=== PATIENT | female | born 1985 | race Caucasian/White ===

== ENCOUNTER 2019-10-28 11:02 | Outpatient (CLI) | payer OTHER, SELFPAY ==
--- NOTE | ~2019-10-28 | XR_ITS ---
EXAMINATION: XR UGIAC w kub DATE: 10/28/2019 11:43 INDICATION: Upper abdominal pain TECHNIQUE: Thick barium contrast with gas effervescent crystals were administered orally. Fluoroscop ic images of the esophagus, stomach, and proximal duodenum were obtained in various projections. The reafter, overhead images of the abdomen were performed. 0.7 minutes of fluroscopy. DAP 14.6. 40 image s FINDINGS: The esophagus is normal in caliber, without mucosal lesions or strictures. There is normal esophagea l peristalsis. There is a small sliding hiatal hernia with gastroesophageal reflux. The gastric folds are normal. The proximal duodenum is also normal in appearance. IMPRESSION: 1. Small sliding hiatal hernia with gastroesophageal reflux. Reviewed, dictated and finalized at location A.
--- NOTE | ~2019-10-28 | US_ITS ---
US right upper quadrant INDICATION: Right upper quadrant abdominal pain PROCEDURE: Realtime right upper abdominal ultrasound. COMPARISON: No prior studies for comparison. FINDINGS: The pancreas is normal without focal mass or pancreatic ductal dilation. Liver echotexture is normal without focal mass or intrahepatic biliary dilatation. There is normal directional flow i n the portal vein. The gallbladder is normal without stones, gallbladder wall thickening or pericholecystic fluid. Comm on bile duct measures 3 mm. No sonographic Granados's sign. IMPRESSION: 1: Normal limited abdominal ultrasound. Reviewed, dictated and finalized at location A.
== END 2019-10-28 11:03 | disposition home or self-care (01) ==
PROVIDERS: PCP Physician Assistant; Visit Provider Physician Assistant
DX: K44.9 Diaphragmatic hernia without obstruction or gangrene (principal); K21.9 Gastro-esophageal reflux disease without esophagitis
CPT/HCPCS: 74246; 76705

== ENCOUNTER 2024-11-28 12:57 | Outpatient (CLI) | payer BC, SELFPAY ==
--- NOTE | ~2024-11-28 | MR_ITS ---
EXAMINATION: MR brain/brain stem wo/w con DATE: 11/28/2024 14:53 INDICATION: Other primary ovarian failure TECHNIQUE: Magnetic resonance imaging (MRI) of the brain and brainstem was performed without and with 13 mL Multihance intravenous contrast. Whole-brain sequences included sagittal T1-weighted FSE, axia l diffusion-weighted FS EPI, axial T2*-weighted GRE, axial T2-weighted FLAIR Propeller, and axial T2- weighted Propeller. Small [id number] sequences included sagittal and coronal T1-weighted FSE cente red at the pituitary. Postcontrast sequences included small [id number] coronal T1-weighted FSE in a time course and sagittal T1-weighted FSE and whole-brain axial T1-weighted FSE. Apparent diffusion coefficient (ADC) maps were created. COMPARISON: None. FINDINGS: There are no areas of restricted diffusion to suggest acute infarction. There is a 3 x 2 mm hypoenhan cing lesion in the central pituitary suspicious for pituitary microadenoma. No evident extension of t he pituitary gland above level of the sella. Pituitary stalk is normal and midline. No intracranial h emorrhage or other abnormal intracranial mass lesion. There are no intraparenchymal signal abnormalit ies seen on the other pulse sequences. The ventricles are symmetric and normal in size. There are no abnormal extra-axial fluid collections. Flow voids are seen in the cerebral arteries on the T2-weight ed sequences consistent with their expected patency. Visualized orbits and soft tissues are unremarka ble. IMPRESSION: 1. 3 x 2 mm hypoenhancing central pituitary lesion consistent with a microadenoma. Reviewed, dictated and finalized at location A. IMPRESSION: 1. 3 x 2 mm hypoenhancing central pituitary lesion consistent with a microadeno [id number]
--- OUTSIDE RECORDS SUMMARY | 2024-11-28 13:03 | XMS_ITS | Clinical Summary ---
Author Organization [facility] Address [address] [place] [address] Care Team Providers Care [employer] Teacher Name Role Phone AngelicaAdelaida Primary Care Pr ovider Allergies Active Allergy Reactions Criticality Noted Date Comments Hydrocodone Nausea & Vomiting Low Pt reports more of an intolerance Medications [id number] cb,[id number] -dha 27-1-50-250 mg combo pack Take by mouth. Acti ve enoxaparin (LOVENOX) 40 mg/0.4 mL syringe 3 Active omega-3 fatty acids-fish oil 300-1,000 mg capsule Take 2 capsules (2 g total) by mouth daily Active budesonide-form oteroL (SYMBICORT) 80-4.5 mcg/actuation inhaler Inhale 2 puffs 2 (two) times a day Rinse mouth with water after use. Do not swallow. 1 each 2 3 Active ProChamber spacer as directed 3 Active ferrous sulfate 325 mg (65 mg of elemental iron) tablet Take 1 tablet (325 mg total) by mouth every other day 15 tablet 3 4 Active Additional Information Patient not taking.Reported on 09/30/2023 magnesium oxide (MAG-OX) 500 mg (301.6 mg elemental) tablet Take 1 tablet (500 mg total) by mouth daily 30 tablet 3 4 Active Additional Information Patient not taking.Reported on 09/30/2023 gabapentin (NEURONTIN) 400 mg capsule Take 1 capsule (400 mg total) by mouth 3 (three) times a day 90 capsule 11 4 Active ibuprofen (ADVIL,MOTRIN) 600 mg tablet Take 1 tablet (600 mg total) by mouth every 6 (six) hours as needed for pain for up to 30 doses 30 tablet 4 Active Additional Information Patient not taking.Reported on 09/30/2023 senna-docusate (PERICOLACE) 8.6-50 mg Take 1 tablet by mouth daily Do not take if having diarrhea 30 tablet 4 Active Additional Information Patient not taking.Reported on 09/30/2023 acetaminophen 500 mg capsule Take 2 capsules (1,000 mg total) by mouth every 6 (six) hours as needed for pain 60 tablet 4 Active Additional Information Patient not taking.Reported on 09/30/2023 polyethylene glycol (MIRALAX) 17 gram/dose bulk powder Take 17 g by mouth daily as needed (constipation) 238 g 4 Active Additional Information Patient not taking.Reported on 09/30/2023 hydrocortisone 0.5 % ointment Apply topically 2 (two) times a day 30 g 4 Active Additional Information Patient not taking.Reported on 09/30/2023 triamcinolone (KENALOG) 0.1 % ointment Apply topically 2 (two) times a day 30 g 4 Active Additional Information Patient not taking.Reported on 09/30/2023 citalopram (CeleXA) 40 mg tablet Take 1 tablet (40 mg total) by mouth daily 30 tablet 2 4 Active levothyroxine (SYNTHROID) 125 mcg tablet Take 1 tablet (125 mcg total) by mouth every morning 30 tablet 3 4 Active Hospital, Clinic, or Other Facility Administered Medication Ordered Dose Route Frequency Start Date End Date Status levonorgestreL (MIRENA) 21 mcg/24 hr (8 yrs) 52 mg IUDIndications:Preg puma Contraception intrauterine Continuous (implanted device) 10/29/2023 9 Active Active Problems Problem Noted Date Diagnosed Date , delivered, current hospitalization 024 Overview (09/18/2023): # ID: Afebrile. No signs/symptoms of infection. # Heme: Hgb 11.7. EBL 300 mL. Hemodynamically stable. #gestational thrombocytopenia: Plt 120k on admission #Mild intermittent asthma: Symbicort BID, albuterol PRN # CV/Pulm: Gestational hypertension - Blood pressures well controlled on no meds. Asymptomatic, denies MCKEE/RUQ pain/vision changes. CBC/CMP WNL (plt as above), UPC 0.067. Consented for BP monitoring, confirmed receipt of welcome text. #History of preeclampsia both prior pregnancies #Hx anorexia nervosa: Continue celexa 40mg daily #Hypothyroidism: Continue levothyroxine 137.5mcg daily #RLS: Continue gabapentin 400mg TID # GI/: Tolerating PO. Voiding spontaneously. # Pain: Controlled with above regimen. # MOC: Desires IUD at visit. # MOF: . Urine drug screen not indicated. Patient informed of results: N/A. # Post DVT prophylaxis: Patient with history of PE - In 2002 while on RODRIGUEZ. On lovenox 40mg daily, continue 6 weeks PP, ordered for PPD1. # Disposition: Follow up task sent to [facility] scheduling pool. Desires discharge home today. Encounter for induction of labor 09/15/2023 Overview (09/16/2023): Meagan Bennett is a 38 y.o. female at 36w6d who is dated by L=1 and is being admitted for scheduled TOLAC secondary . Admit to L&D: Consents signed and placed in chart. Labs: CBC and T&S pending. Induction of labor with delvalle balloon, pitocin . FWB: Continuous monitoring. Reactive . ID: 3rd trimester HIV (>28 wga) negative on 07/16. GBS negative on 08/18 . RPR on admission: pending. History of genital HSV or HSV 1/2 seropositivity: No. Membrane Status: intact. Indications for UDS: none. Verbal consent obtained for UDS: Not indicated. MOF: Plans to breastfeed. Urine drug screen not indicated. Patient informed of results: N/A. MOC: Desires BTL if CS . Pain management: Desires epidural. Post DVT prophylaxis: The patient has the following MAJOR risk factors none and the following MINOR risk factors age >/= 35. SCDs will be ordered for VTE prophylaxis . complicated by: #gHTN: on no medications #Hx pre-eclampsia: in both prior pregnancies, Baseline PIH labs: CMP: WNL and UPC: <66.8 #mild polyhydramnios: PAUL 27.1 on 09/09. #Hx anorexia nervosa: Continue celexa 40mg daily #Hypothyroidism: Continue levothyroxine 137.5mcg daily #Hx PE: In 2002 while on RODRIGUEZ. On lovenox 40mg daily, continue 6 weeks PP #Hx CS: In G3 pregnacy for triplets #Mild intermittent asthma: Symbicort BID, albuterol PRN #gestational thrombocytopenia: Last platelet count 109 on 09/09. Was unable to get neuraxial in G1 #RLS: Continue gabapentin 400mg TID 33 weeks gestation of 08/20/2023 Amenorrhea 06/25/2023 Dyspnea 04/16/2023 Mild intermittent asthma without complication Overview (07/16/2023): History of childhood asthma Pt presented to the [facility] on 03/21 with SOB. Started on symbicort 2 puffs bid- improved 07/16/2023 reports feeling winded again but has not been using her Symbicort Recommend she restart regular use and start zyrtec daily Assessment & Plan (03/26/2023 1:36 PM OCC THERAPY ASST): Albuterol has been helping for 30 minutes. Following counseling plan for d-dimer today and will rock picker and start symbicort as soon as possible with a low threshold for PE-CT in the [facility]. Will f/u results today and plan to see patient in 1 week. Restless legs syndrome 03/10/2023 Overview (07/16/2023): Restarted on gabapentin 300mg once at bedtime on 03/10/2023- discussed options for increasing to 600mg Continue on mag supplements TSH: 2.34 CBC: 11.6/34.2/146K Ferritin: 17- started on PO iron every other day CMP: WNL Assessment & Plan (05/27/2023 11:09 AM OCC THERAPY ASST): Worsening symptoms. Recommend labs today. Discussed good hydration and options for increasing her gabapentin. Previous baby with growth restriction 10/2022 Overview (2023): - plan for serial Golden History of delivery 02/20/2023 Overview (09/10/2023): History - hx of CS in G3 for triplets - previously counseled Plan Currently plans for TOLAC If breech pt declines a version and opts for repeat C/S- vertex 09/10/2023 Assessment & Plan (09/10/2023 10:25 AM CDT): 09/10/2023 Reviewed risks of TOLAC again today including risk of uterine rupture of 1%, reviewed risks of uterine rupture including risk of maternal and . Discussed that we will monitor her uterine activity and baby during her iOL. Reviewed importance of presenting to the [facility] immediately with regular contractions or vaginal bleeding so we can monitor her uterine activity and baby. Discussed that we will not use cytotec and will monitor the pit closely. Discussed risks of C/S delivery including increased bleeding, damage to other organs, scar tissue and infection. Reviewed most women have less pain and easier recoveries with a vaginal delivery. Reviewed risks of vaginal laceration and that extensive lacerations are very difficult to predict. Reviewed most women still have pleasurable intercourse after a vaginal delivery. Discussed options for pelvic floor PT if desired after vaginal delivery. Assessment & Plan (09/04/2023 2:30 PM CDT): Reviewed risks of uterine rupture and recommend epidural during labor. WAC precautions reviewed. Pt aware of recommendations to present to the [facility] with regular/painful contractions. History of delivery 02/20/2023 Overview (03/26/2023): History - G2 - 35w delivery in s/o PreE and FGR - G3 - 29w delivery in s/o triplet Plan - defer CL screening and progesterone supplementation as first delivery iatrogenic for PreE and second in s/o triplets History of anorexia nervosa 02/17/2023 Overview (07/16/2023): Currently on celexa and feels dose is appropriate Discussed options for therapy/support groups Will follow mood closely this Assessment & Plan (07/16/2023 1:43 PM OCC THERAPY ASST): Emotional support provided today. Encouraged walks if possible. Will send to PT to help with pain so she is able to stay active this . MELLY (obstructive sleep apnea) 05/28/2022 Nocturnal hypoxemia 05/28/2022 MVP (mitral valve prolapse) 05/28/2022 Malaise and fatigue 05/28/2022 Hypersomnia 05/28/2022 Grinding of teeth 05/28/2022 Gestational HTN 05/28/2022 Acute sinusitis 05/27/2022 Candidiasis of vagina 05/10/2022 Cough 05/06/2022 Acute bronchitis 05/06/2022 Abnormality of hormone 03/19/2022 Sleep apnea 02/27/2022 Gastroesophageal reflux disease 02/27/2022 Upper respiratory infection 10/01/2021 Nondiabetic gastroparesis 09/18/2021 Hyperlipidemia 09/18/2021 Urinary tract infection 02/27/2016 Diarrhea 11/13/2015 History of pulmonary embolism 06/16/2015 Overview (09/04/2023): History - Pulmonary embolism in 2002 while on estrogen containing control - Hypercoagulable workup: FVL, prothrombin, antithrombin III, protein C, protein S all negative. APLS workup with negative anticardiolipin antibody, positive lupus anticoagulant, no beta 2 glycoprotein ordered. Repeat APLS testing 2019 negative. - Was on Lovenox prophylactic during in 2016 and therapeutic doses in 2019 (due to triplet and possible APLS, repeat testing negative) - currently on lovenox 40mg through primary OB - previously counseled Plan: - continue prophylactic lovenox - APLS labs drawn: 02/27/23- WNL Anaclitic depression 06/16/2015 Overview (03/26/2023): Previously counseled currently on citalopram 40mg Plan: plan to continue citalopram at this time given ongoing anxiety/mood issues and body dysmorphia Irritable bowel syndrome 06/16/2015 Vascular disorder of lower extremity 10/02/2013 Overview (08/22/2016): DVT/EMBLSM LOWER EXT NOS Resolved Problems Problem Noted Date Diagnosed Date Resolved Date Polyhydramnios in third trim pushpa, not applicable or unspecified fetus 09/04/2023 10/29/19 Overview (09/10/2023): 09/04/2023 PAUL 31.1cm, counseled in US S/p low risk NIPT S/p normal 1 hour gtt, BS 09/04/2023 wnl on CMP 09/10/2023 PAUL 27.1, will continue to monitor Assessment & Plan (09/10/2023 10:20 AM CDT): Reviewed the recommendation to only do amnio reductions with severe poly. Reviewed at this time we will continue to monitor. Assessment & Plan (09/04/2023 2:35 PM CDT): Polyhydramnios was noted today. We counseled her that the majority of cases are idiopathic; however, other causes include diabetes, aneuploidy, and congenital anomalies. Pt has had normal NIPT and normal anatomy. Her diabetes test was normal and her BS today was normal. The risks of polyhydramnios, including maternal discomfort, labor, rupture of membranes, cord accident, and hemorrhage, were all reviewed. Pt was offered amnioreduction but remains undecided. We have scheduled her for BPP/fluid check in 1 week. Gestational hypertension, third trimester 08/19/2023 10/29/2023 Overview (09/10/2023): Diagnosed while inpatient. Continue weekly appts with weekly labs and 2x/weekly testing- recommended but pt unable to schedule 2x/weekly Q3 week growth US Delivery at 37 weeks Labs 09/03- repeat ordered for today Thrombocytopenia affecting 07/28/2023 10/29/2023 Overview (09/10/2023): G1 platelets dropped into the 70s, she was unable to get an epidural Lab Results Component Value Date WBC 10.0 (H) 09/04/2023 HGB 12.5 09/04/2023 HCT 36.8 09/04/2023 MCV 90.4 09/04/2023 LABPLAT 108 (L) 09/04/2023 Plan: [] Continue weekly labs [] Anesthesia consult- scheduled but not performed, will reach back out to anesthesia SI (sacroiliac) pain 07/16/2023 024 Overview (07/16/2023): Now wearing a belly band which has been helpful Currently seeing a chiropractor Will refer to PT 07/16/2023 Nausea and vomiting during 2023 05/27/2023 Overview (03/26/2023): - tolerating intermittent PO - plan for B6/unisom, susana zofran, and prn reglan Plan: - sx check qvisit Hypothyroidism affecting pre gnancy in first trimester 02/17/2023 10/29/2023 Overview (09/10/2023): History - pt with history of Olivia's thyroiditis in 2005 - Last TSH 5.3 (per report, no records) - increased from 125mcg to 137.5mcg - home levothyroxine 137.5 mcg daily - previously counseled Plan [] TSH q trimester- ordered for today History of pre-eclampsia in prior , currently in first trimester 02/17/2023 Overview (09/04/2023): History - hx preE in both previous deliveries - previously counseled Plan: - Baseline PIH labs: CMP: WNL and UPC: <66.8 - Low dose ASA at 12 weeks - repeat APLS panel negative See gHTN problem Supervision of high-risk pre gnancy, first trimester 02/17/2023 10/29/2023 Overview (09/10/2023): [x] Full MFM Care; [x] Blue Team (full LUPILLO 2023) Referring Provider: Castillo Sung [phone] [] or Medicare Insurance [x] Dating Criteria: LMP 12/31/22 with TIMUR 10/07/23 [x] Labs: Rh [A+], Ab [Negative], Rubella [Immune], HIV [NonReactive], HepBSAg [Negative], RPR [NonReactive], Hep C [NR], Varicella [Immune], GC/CT [negative] [x] Genetic Screening: low risk Panorama [x] CBC/Hgb 12.7/37.5/188 [x] UCx: No growth [x] Pap: normal 2021 per report [x] LD ASA (if indicated) starting at 12 weeks: [] EPDS [ ]; PNBHS referral (if indicated) 2nd Tri Labs: [x] Anatomy ultrasound: complete [x] CBC: 11.5/34.9/122K 1hr gtt at 24-28wks: 104 HIV: NR RPR: NR [] Flu Shot (Jan-Apr): [x] Tdap (27-36wks): 07/16/2023 MM 3rd Tri Labs: [x] CBC/HIV/RPR: HIV neg, RPR NR [x] GBS: negative 08/18 [x] testing: recommended for 2x/weekly testing 2/2 gHTN, pt scheduled for 1x/weekly Counseling [x] MOD: scheduled IOL TOLAC on 09/14 at 2300 - pt letter sent [x] Place of delivery: [facility] [x] Last clinic visit SVE: 06/12/ballotable [x] IOL start agent: cook/pitocin [x] Epidural: desires [] Consents signed: upon admission [x] MOC: desires salpingectomy if she needs a C/S [x] Method of feeding: breast [x] Intermediate Manager: [x] PP Depression Discussed: Assessment & Plan (07/16/2023 1:44 PM OCC THERAPY ASST): Reviewed importance of continued close monitoring. Patient ok with appt in 2 weeks. [facility] precautions discussed. Reviewed that we do not recommend bed rest in and that I encourage regular movement. No evidence of SROM or PTL today. Epigastric pain 02/08/2022 10/29/2023 Overview (08/22/2023): Continues to have ongoing RUQ pain. LFTs normal. S/p r/o preE in the [facility] 08/04. If she has another mild range BP will plan for admit for obs [x] SFLT/PlGF ratio to rule out PreE - normal [x] RUQ US- normal Plan for close Bp monitoring/weekly appts [facility] precautions reviewed IUD check up 04/07/2019 07/31/2023 Encounter for insertion of Mirena IUD 04/07/2019 07/31/2023 care following delivery 02/24/2019 04/07/2019 Overview (02/27/2019): # ID: Afebrile. No signs/symptoms of infection. Rubella NI, MMR ordered. # Heme: EBL 600mL. No symptoms acute blood loss anemia. # CV/Pulm: #Pre-eclampsia with severe features - s/p 24h magnesium sulfate. Blood pressures well-controlled on no meds, mild-range around delivery, intermittent mild-ranges PP. CBC/CMP remarkable for low platelets (89 > 91), Cr 0.68 > 0.82 > 0.86, UPC 0.27. RUQ pain and MCKEE both improved, no residual symptoms. # HypoT: Continue Synthroid 112mcg. # H/o anorexia nervosa: Continue Celexa 10mg. # GI/: Tolerating PO. Voiding spontaneously. # Pain: Controlled with above regimen. # Post DVT prophylaxis: Patient has the following moderate risk factors: Preeclampsia, history of PE (provoked by OCPs in 2005). Her post prophylaxis plan is therapeutic Lovenox for 6 weeks due to history of PE in setting of multifetal gestation. # MOC: Declines - IVF # MOF: # Disposition: Continue routine care, anticipate discharge today. Benign gestational thrombocy topenia in third trimester 02/19/2019 04/07/2019 Less than expected interval growth- Twin B 02/12/2019 04/07/2019 Overview (02/12/2019): 01/15: EFW Twin B 654g (35%) 02/12: EFW Twin B 1,034g (11%) Discussed that currently all fetuses are AGA, however, there has been interval deceleration in the growth of fetus 2. Discussed options with patient and plan to initiate 2x/weekly BPPs at 28 weeks. Assessment & Plan (02/12/2019 2:24 PM CDT): BPPs today 12/24 x3 Leakage of fluid 02/12/2019 04/07/2019 Overview (02/12/2019): Patient reports a large gush of fluid twice in the last week for which she went to the [facility] and was r/o for rupture. She reports fluid did not smell like urine and is was different than her normal vaginal discharge. No evidence of rupture today. Negative Nitrazine, negative pooling, negative fern. Fluid normal x3. Strict [facility] precautions were reviewed. If she experiences a large gush of fluid she needs to present immediately to the [facility] for evaluation. Reviewed symptoms of infection. Twin 1- Marginal cord insertion 12/18/2018 04/07/2019 Overview (02/09/2019): Counseled regarding risks of IUGR Continue serial growth US Hypothyroidism affecting 10/23/2018 04/07/2019 Overview (02/19/2019): Olivia's thyroiditis diagnosed in 2005 Stable on Levothyroxine 125 mcg daily Previously counseled Plan: -Continue Levothyroxine 125mcg daily -Check TSH every trimester, 10/22 TSH 1.09, 02/12 TSH 0.99 resulting from in vitro fertilization 10/23/2018 04/07/2019 Overview (01/15/2019): [x] ECHOs - WNLx3 History of preeclampsia 10/23/201802/17 Overview (02/12/2019): Diagnosed with severe preeclampsia in her prior requiring delivery at 35 weeks (records in [place]) Had thrombocytopenia requiring a platelet transfusion ([place] of 55) That also complicated by IUGR. Reviewed risks of recurrent preeclampsia given history and especially in the setting of multifetal gestation Continue ASA CMP WNL History of anorexia nervosa 10/19/2018 03/10/2019 Overview (02/12/2019): History of anorexia/bulemia and severe depression Inpatient treatment x 4 months, remission since 2016 (end of last ) No history of hospitalizations or refeeding syndrome. 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 Will step on scale backward and not be told weight. Discussed we will discuss with her if there is a problem but it is best for her to not follow her weight. [x] re-engage with her counselor [x] [facility] referral placed [x] restart celexa 20 mg 12/18: Feeling significantly better after starting the Celexa and talking with her counselor. Continue to monitor symptoms Supervision of high-risk pre gnancy, unspecified trimester 10/19/2018 04/07/2019 Overview (02/19/2019): - Complete care with [facility] - Labs: Will send CBC an CMP from triage today. Needs GBS next visit - Immunizations: s/p flu and TDAP - Follow up: Weekly EOB. Started on twice weekly BPPs last visit. Sent to triage today due to Equivocal BPP for triplet 1 and 3 for NSTs [x] Full MFM Care Referring Provider: Chris [x] Dating Criteria: Embryo transfer [x] Labs: Rh [ A+ ], Ab [ neg ], Rubella [non-imm], HIV [ neg ], HepBSAg [ neg ], RPR [ NR ] [x] Genetic Screening: Normal NT x 3, negative CF carrier screening [x] GC/CT: negative [] UCx: obtain next visit [x] Pap: 2018 NILM [x] PNBHS referral (if indicated) - referral sent 11/20 2nd Tri Labs: [x] Anatomy ultrasound WNL x3, echos x3 WNL [x] CBC - 36.5/11.9/100K [x] 1hr gtt - 131 [x] Flu Shot (Jan-Dec) [x] Tdap (27-36wks) 3rd Tri Labs: [] CBC/HIV/RPR [] GBS [] GC/CT (if indicated) Counselling [x] MOD: Desired primary delivery [] MOC: [] Method of feeding: [] PP Depression Discussed Dichorionic Triamniotic Triplets 10/19/2018 04/07/2019 Overview (02/19/2019): IVF , 2 embryo transfer, dichorionic triamniotic triplet gestation (Triplet 1/Triplet 2 = monochorionic pair) Previously discussed risks Plan: -Nutrition consult, TWG goal of 50lbs, increased caloric intake to 9744-4196/day -LD ASA -TTTS screening every 2 weeks - Specialized anatomy US x 3 at 20 weeks - echos at 20-24 weeks- WNL -Serial growth US - testing starting at 28 weeks -Delivery by 34-35 weeks or sooner if indicated Antepartum hemorrhage 01/05/20162018 Olivia's thyroiditis 08/23/2015 10/0 12/2018 Chronic thyroiditis 10/02/2013 02/21/20 23 Overview (08/21/2016): CHR THYROIDITIS NEC/NOS Hypothyroidism 10/02/2013 02/20/2023 Overview (08/22/2016): Hypothyroid Pulmonary embolism 10/02/2013 9 Overview (01/15/2019): - Pulmonary embolism in 2002 while on estrogen containing control - Hypercoagulable workup: FVL, prothrombin, antithrombin III, protein C, protein S all negative. APLS workup with negative anticardiolipin antibody, positive lupus anticoagulant, no beta 2 glycoprotein ordered. No repeat testing done. - Was on Lovenox prophylactic during in 2016 - Restarted prophylactic dosing at 6 weeks gestation this - Previously counseled regarding risks - currently on therapeutic lovenox Previously discussed recommend scheduling her if possible with a plan for discontinuation of Lovenox 24 hours prior to allow for neuraxial anesthesia. We would plan to restart Lovenox 12 hours after her . Plan: - Lovenox to 1mg/kg BID - 01/08 anti Xa: 1, continue current dos; given normal BMI, will not trend anti- Xa as long as patient is compliant with medication -Continue anti-coagulation through 6 weeks Assessment & Plan (12/18/2018 11:54 AM CDT): Patient had only been taking qday Lovenox. Reviewed importance of BID dosing. Patient will initiate BID dosing today and have anti xa drawn on Friday. Immunizations Immunization Administration Dates Next Due Influenza, Quadrivalent, Denise l Culture-based MDCK, Antibiotic Free, Intramuscular 02/12/2019 Influenza, Quadrivalent, Spl it, Preservative Free, Intramuscular 02/29/2020,02/20/2018,02/19/2018 Influenza, Trivalent, IM (MDV) 01/12/2017,2013 Influenza, Trivalent, Preser vative Free, Intramuscular 01/16/2016 Influenza, Unspecified 02/12/2019 MMR 09/18/2023(Deferred: No longer needed),02/27/2019 Tdap 07/16/2023, 9,01/12/2016,12/01 Varicella 09/18/2023(Deferred: No longer n eeded) Surgical History Surgery Date Site/Laterality Comments RHINOPLASTY 05/19/2007 - 05/18/2008 rhinoplasty OTHER SURGICAL HISTORY 05/19/1999 - 05/18/2000 planter wart removal TONSILLECTOMY 05/19/1993 - 05/18/1994 Tonsillectomy ID UNLISTED PROCEDURE DENTOALVEOLAR STRUCTURES Oral Surgery Tooth Extraction - (Added by TW Conv) US GUIDED PARACENTESIS 08/29/2018 N/A SECTION Medical History Medical History Date Comments Hx Other Medical 2008 Rhinoplasty Hypothyroidism 2006 Hypothyroidism Anemia Anemia Hx Other Medical anorexia nervos a Hx Other Medical PE and DVT seco ndary to oral contraceptives Personal history of other me ntal and behavioral disorders History of eating disorder - (Added by TW Conv) Personal history of other ve nous thrombosis and embolism History of blood clots - (Ad ded by TW Conv) Other mental disorders compl icating , second trimester Depression affecting pregn patricia in second trimester, antepartum - (Added by TW Conv) Maternal care for other know n or suspected poor growth, unspecified trimester, not applicable or unspecified aff ected by intrauterine growth retardation (IUGR) - (Added by TW Conv) History of amenorrhea Family History Medical History Relation Name Comments Hyperlipidemia Father High choleste rol - (Added by Conv) Hypertension Father Family history of hypertension - (Added by Conv) Skin cancer Father Cancer -skin; / Family history of skin cancer - (Added by TW Conv) Diabetes Mother Diabetes mellit us; Hypothyroidism Other 1 Family histor y of Hypothyroidism; Cancer Other 2 Family history of Cancer; Diabetes Other 3 Family history of Diabetes mellitus; Cancer Other 4 Reported Family History Of Cancer - (Added by TW Conv) Hypertension Other 5 Reported Previo us High Blood Pressure - Mother, Father, Aunt, Uncle (Added by TW Conv) Premature Menopause Other 6 Prematur e Menopause - Mother (Added by Conv) Thyroid disease Other 7 Thyroid Diso rder - (Added by Conv) Diabetes Other 8 Diabetes Mellit us - (Added by Conv) Obesity Other 9 Obesity - Aunt (Added by Conv) Breast cancer Other 10 Breast Cancer - Grandmother, Great Grandmother (Added by Conv) Lung cancer Paternal Grandfather Cancer -lung; Cause of : Cancer -lung Melanoma Paternal Grandfather Cancer -melanoma; Cause of : Cancer -melanoma Breast cancer Paternal Grandmother Cancer -breast; Osteoporosis Paternal Grandmother Osteopo rosis; Relation Name Status Comments Father Mother Other 1 Other 2 Other 3 Other 4 Other 5 Other 6 Other 7 Other 8 Other 9 Other 10 Paternal Grandfather (Age 60) Paternal Grandmother Social History Tobacco Use Types Packs/Day Years Used Date Smoking Tobacco: Never Smokeless Tobacco: Never Tobacco Cessation:Counseling Given: Not Answered Alcohol Use Standard Drinks/Week Comments No 0 (1 standard drink = 0.6 oz pur e alcohol) [facility] Utilities Answer Date Recorded In the past 12 months has [employer], oil, or water [employer] threatened to shut off services in your home? No 08/21/2023 Social Connection and Isolat ion Panel [NHANES] Answer Date Recorded In a typical week, how many times do you talk on the phone with family, friends, or neighbors? More than three times a week 09/19/2023 How often do you get togethe r with friends or relatives? More than three times a week 09/19/2023 How often do you attend [facility] or scientologist services? More than 4 times per year 09/19/2023 Do you belong to any clubs o r organizations such as mormon groups, unions, fraternal or athletic groups, or school groups? Yes 09/19/2023 How often do you attend meet ings of the clubs or organizations you belong to? 1 to 4 times per year 09/19/2023 Are you , , di vorced, , never , or living with a partner? 09/19/2023 AUDIT-C Answer Date Recorded Q1: How often do you have a drink containing alc ohol? Never 2023 Average Number of Drinks Not on file 023 Frequency of Binge Drinking Not on file 10/2022 Overall Financial Resource Strain (CARDIA) Answe r Date Recorded How hard is it for you to pa y for the very basics like food, housing, medical care, and heating? Not hard at all 09/19/2023 [facility] - Occupational Stress Questionnaire Answer Date Recorded Do you feel stress - tense, restless, nervous, or anxious, or unable to sleep at night because your mind is troubled all the time - these days? Not at all 08/19/2023 Hunger Vital Sign Answer Date Recorded Within the past 12 months, y ou worried that your food would run out before you got the money to buy more. Never true 09/19/19 24 Within the past 12 months, t he food you bought just didn't last and you didn't have money to get more. Never true 09/19/2023 PRAPARE - Transportation Answer Date Re corded In the past 12 months, has l ack of transportation kept you from medical appointments or from getting medications? No 07/2023 In the past 12 months, has l ack of transportation kept you from meetings, work, or from getting things needed for daily living? No 09/19/2023 Housing Stability Vital Sign Answer Roshan e Recorded In the last 12 months, was t here a time when you were not able to pay the mortgage or rent on time? No 09/19/2023 In the last 12 months, how many places have you lived? 1 09/19/2023 In the last 12 months, was t here a time when you did not have a steady place to sleep or slept in a senior care (including now)? No 09/19/2023 [place] Depression Scale Answer Date Recorded [place] Depression Scale Total 6 10/29/2023 The thought of harming myself has occurred to me . Never 10/29/2023 Personal Safety Answer Date Recorded Have you ever been in or are you currently in a harmful physical or emotional relationship or is someone making you feel afraid or unsafe? 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 Not on file Not on file Obstetrics History Para Term AB IAB SAB Ectopic Multiple Livin g Live Births 4 3 1 2 1 1 1 5 5 Date Outcome GA Total Labor Labor/2nd/3rd Weight Sex Type Anes PTL Mally A1 A5 Name Clin 2006 SAB 6 2.126 kg (4 lb 11 oz) F Vag-Sp ont N Livin g Complications:Pre eclampsia, Thrombocytopenia,IUGR (intrauterine growth restriction) affecting care of mother 2018 29w 5d 1.3 kg (2 lb 13.9 oz) F CS-LTr anv Spinal N Livin g 8 9 ARNOLD JIMENEZ Donal d M., MD Complications:Pre eclampsia Delivery Location:[facility] Main C ampus ([facility] L AND D PROCEDURE) 2018 29w 5d 1.25 kg (2 lb 12.1 oz) F CS-LTr anv Spinal N Livin g 7 8 MITA JIMENEZ Donal d M., MD Complications:Pre eclampsia Delivery Location:[facility] Main C ampus ([facility] L AND D PROCEDURE) 2018 29w 5d 1.48 kg (3 lb 4.2 oz) F CS-LTr anv Spinal N Livin g 5 8 LUIS JIMENEZ Donal d M., MD Complications:Pre eclampsia Delivery Location:[facility] Main C ampus ([facility] L AND D PROCEDURE) 2023 Term 37w 0d 9h 38m 9h 13m/0h 17m/0h 08m 3.09 kg (6 lb 13 oz) M Vagina l Epidur al N Livin g 7 8 Brittyde Regina Medellin MD Complications:None Delivery Location:[facility] Main C ampus ([facility] 58LD) Last Filed Vital Signs Vital Sign Reading Time Taken Comments Blood Pressure 123/72 10/29/2023 11:47 AM CDT Pulse 59 10/29/2023 11:47 AM CDT Temperature 36.8 C (98.2 F) 09/19/2023 11:35 AM CDT Respiratory Rate 18 09/19/2023 11:3 5 AM CDT Oxygen Saturation 100% 10/29/2023 11: 47 AM CDT Inhaled Oxygen Concentration - - Weight 68.4 kg (150 lb 12.8 oz) 024 11:47 AM CDT Height 167.6 cm (5' 6) 10/29/2023 11:4 7 AM CDT Body Mass Index 24.34 10/29/2023 11:47 AM CDT Plan of Treatment Health Maintenance Due Date Last Done Comments Varicella Vaccines (1 of 2 - 13+ 2-dose series) 02/22/2000 Hepatitis B Screening 2005 Regular Well Visit/Exam 18-64 2005 Pneumococcal vaccine <65 (1 of 2 - PCV) 2006 Cervical Cancer Screening 10/28/2024 10/29/2023, 04/2024 Depression Screening 10/28/2024 10/29/2023 Influenza Vaccine (Season Ended) 2025 02/29/2020, 02/12/2019, 02/12/2019, Additional history exists DTaP/Tdap/Td Vaccine (5 - Td or Tdap) 07/16/2033 07/16/2023, 02/12/2019, 01/12/2016, Additional history exists Hepatitis C Screening Completed 02/27/2023 , 07/21/2018, 02/19/2013 HPV Vaccines Aged Out No longer eligi ble based on patient's age to complete this topic Procedures Procedure Name Priority Date/Time Associated Diagnosis Comments PAP AND HIGH RISK HPV, REFLEX TO GENOTYPING Routine 10/29/2023 12:25 PM CDT HEPATITIS C ANTIBODY Routine 02/27/2023 9:17 AM CDT Supervision of high-risk , first trimester from Last 3 Months or Most Recently Relevant to Health Maintenance Results * Pap and High Risk HPV and Genotyping (Cytology Component) (10/29/2023 12:25 PM CDT) Pap test 10/29/2023 12:2 5 PM CDT 10/29/2023 1:22 PM CDT Narrative 11/04/2023 8:19 AM CDT EPIC results best viewed via link to PDF [facility] [place] [address] Note to Patients: This report may contain a detailed description of human tissue sent by a health care provider to the laboratory for pathologic evaluation. The content of this report is essential for diagnosis and may provide important critical findings. This information may be unfamiliar to patients to review without a medical professional present. It is advised that the patient review this report in the presence of a health care provider who can answer questions and explain the details. CYTOPATHOLOGY REPORT FINAL Patient Name: MEAGAN BENNETT Gender: F : 1985 (Age: 38) Address: [address] [place], [place] [id number] Hospital #: [id number] Service: UNKNOWN Location: Patient Type: [facility] SPECIMEN Taken: 10/29/2023 Received: 10/29/2023 Accessioned: 10/29/2023 Reported: 11/04/2023 Physician(s): SAUL Verdugo FINAL INTERPRETATION SOURCE OF SPECIMEN Liquid based Thin Prep pap with HPV: STATEMENT OF ADEQUACY - Satisfactory for evaluation - Endocervical cells/transformation zone sample present GENERAL CATEGORIZATION: - Negative for squamous intraepithelial lesion or malignancy Comments (Normal-Negative for High Risk HPV) HPV HR 16- Not detected HPV HR 18-Not detected HPV HR non 16/18- Not detected Interpretive Data Nucleic acid amplification for detection of high-risk Human Papilloma virus (HPV) is performed by the Agusto Laura 6800 HPV test. This assay specifically detects HPV- 16 and HPV-18 genotypes. The following HPV genotypes are detected as high-risk HPV: HPV-31, 33, 35, 39, 45, 51, 52, 56, 58, 59, 66, and 68. This assay has been approved by the [place] Food and Drug Administration for detection of HPV in cervical specimens collected by a physician using an endocervical brush/spatula or cervical broom and placed in the ThinPrep Pap Test PreservCyt collection containers. The performance characteristics of this test have been verified by the [facility] laboratory. Correlate with reported cytology results, as applicable. Interpretive data last revised 22 tcg/11/04/2023 08:19 ZUHAIR Streeter (ASCP) Report Electronically Reviewed and Signed Out By ZUHAIR Streeter (ASCP) 11/04/2023 08:19:35 Cervicovaginal Cytology (Pap Test) Disclaimer: The Pap test is a screening test used to detect cervical cancer and its precursors; it is not a diagnostic procedure. False negative and false positive results do occur. Pap test results should be interpreted in the context of pertinent clinical information and biopsy results as indicated. [facility] Clinical Laboratory Improvement Amendments (CLIA) mandate that cytologic and histologic results be correlated for laboratory software quality automation engineer & improvement standards. FOR ALL HIGH-GRADE CASES we request submission of follow-up histological material and/or reports that have not been previously provided so that we may fulfill said required standards. Gross Description A. Liquid based Thin Prep pap with HPV: Cervical/vaginal - Screening ThinPrep Clinical Diagnosis and History Last Menstrual Period: Menstrual History: The patient is a 38 year old female with routine screening. Report Images and scanned documents, if included only viewable in PDF version The performance characteristics of some immunohistochemical stains, in-situ hybridization and fluorescence in-situ hybridization tests and immunophenotyping by flow cytometry cited in this report (if any) were determined by the Surgical Pathology Department at [facility] as part of an ongoing quality controller program and in compliance with federally mandated regulations drawn from the Clinical Laboratory Improvement Act of 1988 (CLIA '88). Some of these tests rely on the use of analyte specific reagents and are subject to specific labeling requirements by the US Food and Drug Administration. Such diagnostic tests may only be performed in a facility that is certified by the Department of Health and Human Services as a high complexity laboratory under CLIA '88. The FDA has determined that such clearance or approval is not necessary. This test is used for clinical purposes. It should not be regarded as investigational or for research. Nevertheless, federal rules concerning the medical use of analyte specific reagents require that the following disclaimer be attached to the report: This test was developed and its performance characteristics determined by the Surgical Pathology Department of [facility]. It has not been cleared or approved by the U. S. Food and Drug Administration. Ly Adams NP LAB CYTOLOGY ORDERA BLES Final Result * Hepatitis C antibody Blood (02/27/2023 9:17 AM CDT) Hep C Ab Non Reactive Non Reactive [facility] - 01 Comment: HCV antibody alone does not differentiate between previously resolved infection and active infection. Equivocal and Reactive HCV antibody results should be followed up with an HCV RNA test to support the diagnosis of active HCV infection. Blood 02/27/2023 9:17 AM CDT 02/27/2023 Narrative [facility] - 02/28/2023 7:11 AM CDT Performed at: - [address] [id number] Steam Finisher: Spencer Tamayo PhD, Phone: [phone] Naty Urias MD LAB MICROBIOLOGY - GE NERAL ORDERABLES Final Result [facility] - 01 from Last 3 Months or Most Recently Relevant to Health Maintenance Insurance [facility] CHOICE PLUS [employer] OPEN ACCESS [facility] CHOICE PLUS [facility] CHOICE PLUS Advance Directives For more information, please contact: [phone] * Full Code (Latest Code Status on File) Date Activated Date Inactivated Comments 09/16/2023 1:50 PM 09/18/2023 5:41 PM * Full Code Date Activated Date Inactivated Comments 09/15/2023 11:29 PM 09/16/2023 1:50 PM Full CPR in case of cardiopulmonary arrest * Full Code Date Activated Date Inactivated Comments 08/19/2023 5:23 PM 08/21/2023 6:56 PM * Full Code Date Activated Date Inactivated Comments 02/19/2019 5:36 PM 02/27/2019 7:15 PM * Full Code Date Activated Date Inactivated Comments 12/12/2018 10:35 PM 12/13/2018 6:13 PM Care Teams Forest Products Teacher Relationship Specialty Start Date End Date Adelaida Dominguez PA PCP - General Physician Cadet Deck 10/23/18
--- OUTSIDE RECORDS SUMMARY | 2024-11-28 13:03 | XMS_ITS | Clinical Summary ---
Author Organization [facility] Address [address] [place] [address] Care Team Providers Care Volleyball Commentator Name Role Phone Adelaida Mayberry Primary Care Pr ovider Adelaida Mayberry Unavailable Source Comments [facility],non-owned Affiliates and Associated Physician Practices is amultiple site organization consisting of ambulatory clinics and hospital sitesin [place], [place], [place] and [place]. This disclosure is being madepursuant to the Care Everywhere program and may not contain all information available regarding this patient. Last updated 18.[facility] Allergies No known active allergies Medications * Be aware that medications may not be up to date on this document. Alwaysverify current medications with the patient. levothyroxine (Tirosint) 125 MCG capsule Take 1 (one) capsule by mouth daily before breakfast Active citalopram (CeleXA) 40 MG tablet Take 1 (one) tablet by mouth once daily Active gabapentin (Neurontin) 300 MG capsule Take 1 (one) capsule by mouth 2 times daily 300 mg at supper and 300 mg at bed time 60 capsule 3 Active Vit-Fe Fumarate-FA (PNV PLUS MULTIVITAMIN PO) Act sascha Active Problems Problem Noted Date Diagnosed Date Restless legs syndrome (RLS) 05/28/2022 MELLY (obstructive sleep apnea) on adjsutabe oral appliance 05/28/2022 Nocturnal hypoxemia 05/28/2022 Malaise and fatigue 05/28/2022 Hypersomnia 05/28/2022 Grinding of teeth 05/28/2022 Gestational HTN- History 05/28/2022 Hypothyroidism 05/28/2022 MVP (mitral valve prolapse) 05/28/2022 Depression with anxiety 05/28/2022 IBS (irritable bowel syndrome) 05/28/2022 Encounters Date Type Department Care Team Description 11/12/2024 Telephone [facility] - Pulmonology [address] [place] [phone] Audelia Cuellar, FELT HANGER-MEDIC TECHNICIAN Durable Medical Equipment ([place] request) from Last 3 Months Family History Medical History Relation Name Comments Cancer - Skin, Melanoma Father Heart Failure Father High Blood Pressure Father Cancer - Lung Maternal Grandfather Osteoporosis Maternal Grandmother Cancer - Skin, Melanoma Paternal Grandfather Cancer - Breast Paternal Grandmother Relation Name Status Comments Brother Alive Father Alive Maternal Grandfather Maternal Grandmother Alive Mother Alive Paternal Grandfather Paternal Grandmother Social History Tobacco Use Types Packs/Day Years Used Date Smoking Tobacco: Never Smokeless Tobacco: Never Tobacco Cessation:Counseling Given: Yes Alcohol Use Standard Drinks/Week Comments Yes 0 (1 standard drink = 0.6 oz pur e alcohol) occassionally Comments Unknown Sex and Gender Information Value Date Recorded Sex Assigned at Not on file Legal Sex Female 12:01 PM BODY BUILDER Gender Identity Not on file Sexual Orientation Not on file Last Filed Vital Signs Vital Sign Reading Time Taken Comments Blood Pressure 110/50 02/25/2023 2:45 PM CDT Pulse 75 02/25/2023 2:45 PM CDT Temperature 36.2 C (97.1 F) 02/25/2023 2:45 PM CDT Respiratory Rate 16 02/25/2023 2:45 PM CDT Oxygen Saturation 99% 02/25/2023 2:4 5 PM CDT Inhaled Oxygen Concentration - - Weight 65.8 kg (145 lb) 05/28/2022 1:41 PM BODY BUILDER pt reported. did not want to use scale Height 167.6 cm (5' 6) 02/25/2023 2:45 PM CDT Body Mass Index 23.4 05/28/2022 1:41 PM BODY BUILDER Plan of Treatment Health Maintenance Due Date Last Done Comments HIV SCREENING 2002 DTAP/TDAP/TD VACCINES (1 - Tdap) 2006 HEPATITIS B VACCINE (1 of 3 - 19+ 3-dose series) 2006 PAP SMEAR 02/22/2008 HPV VACCINE (1 - 3-dose SCDM series) 2014 COVID-19 VACCINE (1 - 2023-2 5 season) 2024 DEPRESSION SCREENING 05/19/2024 INFLUENZA VACCINE (#1) 2025 , 02/12/2019, 02/20/2018 ZOSTER VACCINE (1 of 2) 2037 HEPATITIS C SCREENING Completed 02/05/2023 HIB VACCINE Aged Out No longer eligi ble based on patient's age to complete this topic MENINGOCOCCAL (Group B) VACCINE SHARED DECISION-MAKING Aged Out No longer eligible based on patient's age to complete this topic MENINGOCOCCAL GROUPS A/C/Y/W VACCINE Aged Out No longer eligible b ased on patient's age to complete this topic PNEUMOCOCCAL VACCINE Aged Out No long er eligible based on patient's age to complete this topic [place] [place] [address] [facility] Care Teams Volleyball Commentator Relationship Specialty Start Date End Date Adelaida Mayberry PA [address] [place] [id number] PCP - General Physician Emergency Vehicle Technician 05/28/22 Adelaida Mayberry PA [address] [place] [phone] Physician Emergency Vehicle Technician 05/28/22
--- OUTSIDE RECORDS SUMMARY | 2024-11-28 13:03 | XMS_ITS | Encounter Summary ---
Author Organization [facility] Address [address] [place] [address] Care Team Providers Care Chartered Financial Analyst Name Role Phone Adelaida Mayberry Primary Care Pr ovider Adelaida Mayberry Primary Care Pr ovider Adelaida Mayberry Unavailable Encounter Details Date Type Department Care Team (Late st Contact Info) Description 11/03/2020 Lab Requisition [facility] Care [facility] Lab [address] [place] [id number] Chago Baird Jr., MD [address] [place] [address] Social History Tobacco Use Types Packs/Day Years Used Date Smoking Tobacco: Never Assessed Comments Unknown Sex and Gender Information Value Date Recorded Sex Assigned at Not on file Legal Sex Female 12:01 PM FRAME FEEDER Gender Identity Not on file Sexual Orientation Not on file documented as of this encounter Plan of Treatment Not on file documented as of this encounter Procedures Procedure Name Priority Date/Time Associated Diagnosis Comments DERMATOPATHOLOGY Routine 11/02/2020 12:0 0 AM CDT documented in this encounter Results * DERMATOPATHOLOGY (11/02/2020 12:00 AM CDT) Case Report Dermatopathology Report Case: [id number] Authorizing Provider: Chago Baird Jr., MD Collected: 11/02/2020 12:00 AM Ordering Location: [facility] Lab Received: 11/03/2020 12:48 PM Pathologist: Poppy Cortes MD Specimen: Skin, right proximal pretibial region 11:55 AM CDT DERMATOPATHOLOGY LABORATORY Final Diagnosis Specimen A. SKIN, right proximal pretibial region: DERMAL SCAR RESIDUAL MELANOCYTIC PROLIFERATION NOT IDENTIFIED (L90.5) 11:55 AM CDT DERMATOPATHOLOGY LABORATORY at 1155 CDT Clinical History Atypical melanocytic proliferation. Check margins. . 11:55 AM CDT DERMATOPATHOLOGY LABORATORY Gross Description Specimen A: Received is one formalin filled container labeled with the patient's name and designated right proximal pretibial region. The specimen consists of a non-oriented ellipse of skin measuring [id number]. The epidermal surface is unremarkable. The margin is inked green. The specimen is bisected and submitted in 1 cassette. Jar 0. 11:55 AM CDT DERMATOPATHOLOGY LABORATORY Microscopic Description Specimen A. SKIN, right proximal pretibial region: There are fibroblasts and collagen bundles oriented parallel to the skin surface. There are elongated blood vessels, some of which are oriented perpendicular to the skin surface. No residual melanocytic proliferation is identified. 11:55 AM CDT DERMATOPATHOLOGY LABORATORY Disclaimer An external and internal positive and negative controls are appropriate for the histochemical, immunohistochemical and immunofluorescence stain(s) in this case (if any), except where stated explicitly. The performance characteristics of the stain(s) cited in this report were developed and its performance characteristic determined by the Dermatopathology Laboratory at [facility], directed by Dr. Corazon Villa. These tests need not be, and therefore are not, approved by the [place] Food and Drug Administration. The tests are used for clinical purposes. Billing Codes Specimen Charges Stain Charges 02283 1 11:55 AM CDT DERMATOPATHOLOGY LABORATORY Embedded Images 11:55 AM CDT DERMATOPATHOLOGY LABORATORY Pathology/Cytolog y TISSUE SPECIMEN FROM SKIN / Unknown 11/02/2020 11/03/2020 12:48 PM CDT Chago Baird Jr., MD LAB - PATHOLOGY/CYTOLOG Y ORDERABLES Final Result DERMATOPATHOLOGY LABORATORY [facility] - Department of Dermatology [address] [place] [address], [facility] [phone] documented in this encounter Visit Diagnoses Not on filedocumented in this encounter Care Teams Chartered Financial Analyst Relationship Specialty Start Date End Date Adelaida Mayberry PA [address] [place] [phone] PCP - General Physician Banquet Captain 04/02/22 05/27/22 Adelaida Mayberry PA [address] [place] [phone] PCP - General Physician Banquet Captain 05/28/22 Adelaida Mayberry PA [address] [place] [phone] Physician Banquet Captain 05/28/22 documented as of this encounter
--- OUTSIDE RECORDS SUMMARY | 2024-11-28 13:03 | XMS_ITS | Encounter Summary ---
Author Organization [facility] Address [address] [place] [address] Care Team Providers Care Cone Operator Name Role Phone Adelaida Mayberry Primary Care Pr ovider Adelaida Mayberry Primary Care Pr ovider Adelaida Mayberry Unavailable Encounter Details Date Type Department Care Team (Late st Contact Info) Description 10/09/2020 Lab Requisition [facility] Care DermPath Lab [address] 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 Gender Identity Not on file Sexual Orientation Not on file documented as of this encounter Plan of Treatment Not on file documented as of this encounter Procedures Procedure Name Priority Date/Time Associated Diagnosis Comments DERMATOPATHOLOGY Routine 10/06/2020 12:0 0 AM CDT documented in this encounter Results * DERMATOPATHOLOGY (10/06/2020 12:00 AM CDT) Case Report Dermatopathology Report Case: [id number] Authorizing Provider: Chago Baird Jr., MD Collected: 10/06/2020 12:00 AM Ordering Location: [facility] DermPath Lab Received: 10/09/2020 02:36 PM Pathologist: Kym Villa MD Specimens: A) - Skin, right proximal pretibial region B) - Skin, right medial thigh C) - Skin, right inguinal fold D) - Skin, left buttock 5:28 PM CDT DERMATOPATHOLOGY LABORATORY Final Diagnosis Specimen A. SKIN, right proximal pretibial region: COMPOUND MELANOCYTIC PROLIFERATION, INFLAMED; NOT PRESENT AT SAMPLED MARGIN (D48.5) (see microscopic description and comment) Specimen B. SKIN, right medial thigh: ACROCHORDON (SOFT FIBROMA, SKIN TAG) (L91.8) (see microscopic description) Specimen C. SKIN, right inguinal fold: BENIGN VERRUCOUS KERATOSIS (L82.1) (see microscopic description) Specimen D. SKIN, left buttock: INTRADERMAL MELANOCYTIC NEVUS (D22.5) 5:28 PM CDT DERMATOPATHOLOGY LABORATORY at 1728 CDT Clinical History A: Melanoma vs dysplastic nevus. B-D: Condyloma acuminata vs seborrheic keratosis vs traumatized nevus. 5:28 PM CDT DERMATOPATHOLOGY LABORATORY Gross Description Specimen A: Received is one formalin filled container labeled with the patient's name and designated right proximal pretibial region. The specimen consists of a shave biopsy measuring [id number]. Jar 0. Specimen B: Received is one formalin filled container labeled with the patient's name and designated right medial thigh. The specimen consists of a shave biopsy measuring [id number]. Jar 0. Specimen C: Received is one formalin filled container labeled with the patient's name and designated right inguinal fold. The specimen consists of a shave biopsy measuring [id number]. Jar 0. Specimen D: Received is one formalin filled container labeled with the patient's name and designated left buttock. The specimen consists of a shave biopsy measuring [id number], bisected. Jar 0. 5:28 PM CDT DERMATOPATHOLOGY LABORATORY Microscopic Description Specimen A. SKIN, right proximal pretibial region: Sections show a compound melanocytic proliferation. There is a lentiginous proliferation of melanocytes between irregular nests. Scattered melanocytes show evidence of upward migration within the epidermis. The melanocytes are large and have a jeb cytoplasm. The dermis shows scattered small nests of cytologically similar melanocytes. Inflammatory cells are present within the dermis. Melanocytes are highlighted with immunohistochemical staining for MART-1/Melan-A. This lesion is not present at the sampled margin of the specimen. COMMENT: Although the architecture of this lesion is reassuring, the cytology is worrisome. As this lesion appears completely excised in the sampled sections, clinicopathologic correlation is recommended as to complete removal. This case was also reviewed by Dr. Joanna Lo, who agrees. Specimen B. SKIN, right medial thigh: There is a gently folded epidermis surrounding a connective tissue core in which fat and collagen are intermingled. Additional deeper sections were obtained and reviewed. Specimen C. SKIN, right inguinal fold: Sections show hyperkeratosis, papillomatosis, hypergranulosis, and acanthosis. These histological findings can be seen in a verruca vulgaris or a seborrheic keratosis. Additional deeper sections were obtained and reviewed. Specimen D. SKIN, left buttock: There are nests of cytologically bland melanocytes within the dermis that mature with depth. 5:28 PM CDT DERMATOPATHOLOGY LABORATORY Disclaimer An external and internal positive and negative controls are appropriate for the histochemical, immunohistochemical and immunofluorescence stain(s) in this case (if any), except where stated explicitly. The performance characteristics of the stain(s) cited in this report were developed and its performance characteristic determined by the Dermatopathology Laboratory at [facility], directed by Dr. Corazon Villa. These tests need not be, and therefore are not, approved by the [place] Food and Drug Administration. The tests are used for clinical purposes. Billing Codes Specimen Charges Stain Charges 02003 89901 85317 03539 1 1 1 1 [id number] 1 1 5:28 PM CDT DERMATOPATHOLOGY LABORATORY Embedded Images 5:28 PM CDT DERMATOPATHOLOGY LABORATORY Pathology/Cytology TISSUE SPECIMEN FROM SKIN / Unknown 10/06/2020 10/09/2020 2:36 PM CDT Miscellaneous samples (specimen) TISSUE SPECIMEN FROM SKIN / Unknown 10/06/2020 10/09/2020 2:36 PM CDT Miscellaneous samples (specimen) TISSUE SPECIMEN FROM SKIN / Unknown 10/06/2020 10/09/2020 2:36 PM CDT Miscellaneous samples (specimen) TISSUE SPECIMEN FROM SKIN / Unknown 10/06/2020 10/09/2020 2:36 PM CDT Chago Baird Jr., MD LAB - PATHOLOGY/CYTOLOG Y ORDERABLES Final Result DERMATOPATHOLOGY LABORATORY [facility] - Department of Dermatology [facility] Medicine [address] [place] [address], [address] [phone] documented in this encounter Visit Diagnoses Not on filedocumented in this encounter Care Teams Cone Operator Relationship Specialty Start Date End Date Adelaida Mayberry PA [address] [place] [address] [place] [phone] PCP - General Physician Insole And Heel Stiffener 04/02/22 05/27/22 Adelaida Mayberry PA [address] [place] [address] PCP - General Physician Insole And Heel Stiffener 05/28/22 Adelaida Mayberry PA [address] [place] [address] [place] [address] Physician Insole And Heel Stiffener 05/28/22 documented as of this encounter
--- OUTSIDE RECORDS SUMMARY | 2024-11-28 13:03 | XMS_ITS | Referral Summary ---
Author Organization [facility] Address [address] [place] [address] Care Team Providers Care Logging Assistant Name Role Phone AngelicaAdelaida Primary Care Pr ovider Allergies Active Allergy Reactions Criticality Noted Date Comments Hydrocodone Nausea & Vomiting Low Pt reports more of an intolerance Medications [id number]-zsor cb,dd-lmzqz-cuh -dha 27-1-50-250 mg combo pack Take by [...] # Disposition: Follow up task sent to [facility] scheduling pool. Desires discharge home today. Encounter [...] of childhood asthma Pt presented to the [facility] on 03/21 with SOB. Started on symbicort 2 puffs bid- improved 07/16/2023 reports feeling winded again but has not been using her Symbicort Recommend she restart regular use and start zyrtec daily Assessment & Plan (03/26/2023 1:36 PM DOCTOR OF PHARMACY): Albuterol has been helping for 30 minutes. 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 Will f/u results today and plan to see patient in 1 week. Restless legs syndrome 03/10/2023 Overview (07/16/2023): Restarted on gabapentin 300mg once at bedtime on 03/10/2023- discussed options for increasing to 600mg Continue on mag supplements TSH: 2.34 CBC: 11.6/34.2/146K Ferritin: 17- started on PO iron every other day CMP: WNL Assessment & Plan (05/27/2023 11:09 AM DOCTOR OF PHARMACY): Worsening symptoms. Recommend labs today. Discussed good [...] iOL. Reviewed importance of presenting to the [facility] immediately with regular contractions or vaginal bleeding [...] aware of recommendations to present to the [facility] with regular/painful contractions. History of delivery 02/20/2023 [...] this Assessment & Plan (07/16/2023 1:43 PM DOCTOR OF PHARMACY): Emotional support provided today. Encouraged walks if [...] (full LUPILLO 2023) Referring Provider: Castillo Sung [phone] [] or Medicare Insurance [x] Dating Criteria: [...] C/S [x] Method of feeding: breast [x] Optical Instrument Repairer: [x] PP Depression Discussed: Assessment & Plan (07/16/2023 1:44 PM DOCTOR OF PHARMACY): Reviewed importance of continued close monitoring. Patient ok with appt in 2 weeks. PVT precautions discussed. Reviewed that we do not recommend bed rest in and that I encourage regular movement. No evidence of SROM or PTL today. Epigastric pain 02/08/2022 10/29/2023 Overview (08/22/2023): Continues to have ongoing RUQ pain. LFTs normal. S/p r/o preE in the [facility] 08/04. If she has another mild range BP will plan for admit for obs [x] SFLT/PlGF ratio to rule out PreE - normal [x] RUQ US- normal Plan for close Bp monitoring/weekly appts [facility] precautions reviewed IUD check up 04/07/2019 07/31/2023 [...] week for which she went to the [facility] and was r/o for rupture. She reports fluid did not smell like urine and is was different than her normal vaginal discharge. No evidence of rupture today. Negative Nitrazine, negative pooling, negative fern. Fluid normal x3. Strict [facility] precautions were reviewed. If she experiences a large gush of fluid she needs to present immediately to the [facility] for evaluation. Reviewed symptoms of infection. Twin [...] IVF for secondary to this) Referral to typer this Extensive discussion re: anxiety and depression [...] 04/07/2019 Overview (02/19/2019): - Complete care with [facility] - Labs: Will send CBC an CMP [...] goal of 50lbs, increased caloric intake to 2900-2147/day -LD ASA -TTTS screening every 2 weeks [...] 9,01/12/2016,12/01 Varicella 09/18/2023(Deferred: No longer n eeded) Social History Tobacco Use Types Packs/Day Years Used Date Smoking Tobacco: Never Smokeless Tobacco: Never Tobacco Cessation:Counseling Given: Not Answered Alcohol Use Standard Drinks/Week Comments No 0 (1 standard drink = 0.6 oz pur e alcohol) [facility] Utilities Answer Date Recorded In the past 12 months has [employer], gas, oil, or water [employer] threatened to shut off services in your [...] week 09/19/2023 How often do you attend chur ch or mandaeism services? More than 4 times per year 09/19/2023 Do you belong to any clubs o r organizations such as religion groups, unions, fraternal or athletic groups, or [...] and heating? Not hard at all 09/19/2023 [facility] [place] of Occupat ional Health - Occupational Stress [...] place to sleep or slept in a longterm (including now)? 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..] this test have been verified by the [facility] Molecular Infectious Disease laboratory. Correlate with reported cytology results, as applicable. Interpretive data last revised 22 tc/11/04/2023 08:19 ZUHAIR Streeter (ASCP) Report Electronically Reviewed [...] clinical information and biopsy results as indicated. [facility] Clinical Laboratory Improvement Amendments (CLIA) mandate that cytologic and histologic results be correlated for laboratory quality control analyst & improvement standards. FOR ALL HIGH-GRADE CASES [...] determined by the Surgical Pathology Department at [facility] as part of an ongoing software quality assurance analyst program and in compliance with federally mandated [...] determined by the Surgical Pathology Department of [facility]. It has not been cleared [...] 02/28/2023 7:11 AM CDT Performed at: - [address] [id number] Architect Internship: Spencer Tamayo PhD, Phone: [phone] us Naty Urias MD LAB MICROBIOLOGY - NERWY ORDERABLES Final Result [facility] from Last 3 Months or Most Recently Relevant to Health Maintenance Insurance [facility] CHOICE PLUS [email or web address] OPEN ACCESS [facility] CHOICE PLUS [employer] [facility] CHOICE PLUS Advance Directives For more information, please contact: [phone] * Full Code (Latest Code Status on [...] 10:35 PM 12/13/2018 6:13 PM Care Teams Logging Assistant Relationship Specialty Start Date End Date Adelaida Dominguez PA PCP - General Physician Ssis Etl Developer 10/23/18
--- OUTSIDE RECORDS SUMMARY | 2024-11-28 13:04 | XMS_ITS | Data Portability ---
Author Organization [email or web address], Main Office Address [address] [place] [address] Assessment No assessment recorded. Plan of Treatment Reminders Order Date Submit Date Provider Last Modified By Organization Details Last Modified Time Details Appointments None recorded. Lab T3, free, serum or plasma 2022 023 [email or web address] [facility], [address], [address], [place], [address], 3 15:54:31 TSH + free T4, serum 2022 023 [email or web address] [facility], [address], [place], [address], 3 15:55:14 Referral None recorded. Procedures None recorded. Surgeries None recorded. Imaging None recorded. Medication Orders levothyroxi ne 137 mcg tablet 2022 023 [id number], [address] [place], [place], [id number], 10:54:44 Patient TargetsNo targets recorded. Patient InstructionsNo instructions recorded. Reason for Referral None Reported. Results Created Date Observation Date Name Description Value Unit Range Abnormal Flag Note LastModifiedBy Organization Detail LastModifiedTime Result Notes None recorded. Problems Name Problem SNOMED Code Status Onset Date Resolution Date Notes Provider Name and Address Organization Details Recorded Time Dyspnea 356181260 Active 2022 FRED Garcia [address] [facility], [address], [place], [address] , [email or web address] 3 22:49:37 Acute bronchitis 41308499 Active 2021 Not Available [facility] 3 04:46:05 Irritable bowel syndrome 78449992 Active 2019 Not Available [facility] 3 04:46:05 Amenorrhea 55254363 Completed Not Available [facility] 3 04:46:05 Acute sinusitis 18108042 Active 2022 Not Available [facility] 3 04:46:05 Generalize d anxiety disorder 91453609 Active 2019 Not Available [facility] 3 04:46:05 Gastroesop hageal reflux disease 347903069 Active 2021 Not Available [facility] 3 04:46:05 Restless legs 05236422 Active 2021 Not Available [facility] 3 04:46:06 Hypothyroi dism 34241657 Active 2019 Not Available [facility] 3 04:46:06 Nausea 885724713 Active 2021 Not Available [facility] 3 04:46:06 Body fluid retention 31521310 Active Not Available [facility] 3 04:46:06 Cough 44880821 Active 2021 Not Available [facility] 3 04:46:06 Upper respirator y infection 16902786 Active 2021 Not Available [facility] 3 04:46:06 Hyperlipid emia 57927631 Active 2021 Not Available [facility] 3 04:46:06 Dyspareuni a 38140255 Active Not Available [facility] 3 04:46:06 Candidiasi s of vagina 31200555 Active 2021 Not Available [facility] 3 04:46:06 Sleep apnea 92989106 Active 2021 Not Available [facility] 3 04:46:06 Nondiabeti c gastropare sis 63642698 Active 2021 Not Available [facility] 3 04:46:06 Epigastric pain 57418959 Active 2021 Not Available [facility] 3 04:46:06 Hormone abnormalit y 36416217 Active 2021 Not Available [facility] 3 04:46:07 Problem Notes None recorded. Procedures Surgical History Date Name Laterality Status Provider Name and Address Organization Details Recorded Time 12/16/19 20 Date of Last Pap Smear completed Not Available [facility] 07/17/2022 04:41:29 05/19/19 14 Date of Last Colonoscopy completed Not Available [facility] 07/17/2022 04:41:29 05/19/19 11 Most Recent Bone Density completed Not Available [facility] 07/17/2022 04:41:29 Reconstructive Surgery completed Not Available [facility] 07/17/2022 04:41:31 removal of wart completed Not Available [facility] 07/17/2022 04:41:31 completed Not Available [facility] 07/17/2022 04:41:31 tooth extraction completed Not Available [facility] 07/17/2022 04:41:31 Imaging Results None recorded. Procedure Notes None recorded. Medical Equipment None Reported. Medications Name Sig Start Date Stop Date Status Note LastModified by Organization Details LastModified Time BD Regular Bevel [place] 27 gauge x 1/2 U TO INJECT MENOPUR UNDER THE SKIN UTD. 05/26 completed Not Available Not Available Not Available pramipexo le 1 mg tablet TAKE 1 TABLET BY MOUTH TWICE DAILY 01/30 completed Not Available Not Available Not Available medroxypr ogesteron e 10 mg tablet Take 1 tablet every day by oral route. 07/10 completed Not Available Not Available Not Available Mirena 21 mcg/24 hr (up to 8 years) 52 mg intrauter ine device Take by intraute rine route. 2019 active Not Available Not Available Not Avai lable dicloxaci llin 500 mg capsule 05/26 completed Not Available Not Available Not Available levothyro xine 137 mcg tablet TAKE 1 TABLET BY MOUTH EVERY DAY IN THE MORNING 2023 active Not Available Not Available Not Avai lable citalopra m 40 mg tablet TAKE 1 TABLET BY MOUTH EVERY DAY active Not Available Not Available No t Available clomiphen e citrate 50 mg tablet Take 1 tablet every day by oral route. active Not Available Not Available No t Available citalopra m 10 mg tablet Take 1 tablet every day by oral route. 09/02 completed Not Available Not Available Not Available sucralfat e 1 gram tablet TAKE 1 TABLET BY MOUTH TWICE DAILY 02/27 completed Not Available Not Available Not Available promethaz ine 12.5 mg tablet 05/26 completed Not Available Not Available Not Available metronida zole 0.75 % (37.5 mg/5 gram) vaginal gel active Not Available Not Available Not Available ropinirol e 3 mg tablet TK 1 T PO QD HS active Not Available Not Available No t Available doxycycli ne hyclate 50 mg capsule TK 1 C PO BID. 05/31 completed Not Available Not Available Not Available sertralin e 100 mg tablet active Not Available Not Available Not Available clonazepa m 1 mg tablet TAKE 1 TABLET BY MOUTH EVERY NIGHT AT BEDTIME NEEDED FOR RESTLESS LEGS 02/27 completed Not Available Not Available Not Available Zithromax Z-Kostas 250 mg tablet TAKE 2 TABLETS (500 MG) BY ORAL ROUTE ONCE DAILY FOR 1 DAY THEN 1 TABLET (250 MG) BY ORAL ROUTE ONCE DAILY FOR 4 DAYS 01/30 completed Not Available Not Available Not Available Diflucan 150 mg tablet take one tab po on day 2 and day 5 of antibiot ic use 01/30 completed Not Available Not Available Not Available amoxicill in 500 mg tablet TAKE 1 TABLET BY MOUTH EVERY 8 HOURS UNTIL GONE 03/21 completed Not Available Not Available Not Available progester one 50 mg/mL intramusc ular oil 05/26 completed Not Available Not Available Not Available citalopra m 20 mg tablet TK 1 T PO QD active Not Available Not Available No t Available metoclopr amide 5 mg tablet TK 1 T PO BID with breakfas t and supper. active clonazep am not being used for seizures , used for RLS. Not Available Not Available Not Available chorionic gonadotro pin, human 10,000 unit IM powder for solution 05/26 completed Not Available Not Available Not Available methylpre dnisolone 8 mg tablet 05/25 completed Not Available Not Available Not Available pantopraz ole 40 mg tablet,de layed release TAKE 1 TABLET BY MOUTH EVERY DAY WITH MEAL active Not Available Not Available No t Available oseltamiv ir 75 mg capsule TK 1 C PO QD FOR 10 DAYS 02/06 completed Not Available Not Available Not Available levothyro xine 125 mcg tablet TAKE 1 TABLET BY MOUTH EVERY DAY IN THE MORNING 06/07 completed Not Available Not Available Not Available ropinirol e 0.5 mg tablet TK 1 TO 2 TS PO HS FOR RESTLESS S LEGS active Not Available Not Available No t Available prednison e 50 mg tablet Take 1 tablet every day by oral route for 5 days. 01/30 completed Not Available Not Available Not Available lidocaine 5 % topical patch 05/26 completed Not Available Not Available Not Available Wellbutri n 75 mg tablet Take 1 tablet 3 times a day by oral route. 05/31 completed Not Available Not Available Not Available progester one micronize d 200 mg capsule 05/26 completed Not Available Not Available Not Available Synthroid 50 mcg tablet Take 1 tablet every day by oral route. 06/12 completed Not Available Not Available Not Available gabapenti n 300 mg capsule active Not Available Not Available Not Available sertralin e 25 mg tablet active Not Available Not Available Not Available gabapenti n 100 mg capsule TAKE 1 TO 2 CAPSULES BY MOUTH EVERY NIGHT AT BEDTIME 01/30 completed Not Available Not Available Not Available ibuprofen 600 mg tablet 05/26 completed Not Available Not Available Not Available cefuroxim e axetil 500 mg tablet Take 1 tablet every 12 hours by oral route. active Not Available Not Available No t Available polyethyl kiel glycol 3350 17 gram/dose oral powder 05/26 completed Not Available Not Available Not Available letrozole 2.5 mg tablet 07/10 completed Not Available Not Available Not Available methylpre dnisolone 4 mg tablets in a dose pack FOLLOW PACKAGE DIRECTIO NS 02/15 completed Not Available Not Available Not Available albuterol sulfate HFA 90 mcg/actua tion aerosol inhaler INHALE 2 PUFFS BY MOUTH EVERY 6 TO 8 HOURS NEEDED active Not Available Not Available No t Available ondansetr on 4 mg disintegr ating tablet active Not Available Not Available Not Available BD Luer-Lillian Syringe 3 mL 22 x 1 1/2 U TO MIX AND DRAW UP MENOPUR UTD. 05/26 completed Not Available Not Available Not Available metoclopr amide 10 mg tablet TK 1 T PO D PRN 11/15 completed Not Available Not Available Not Available progester one micronize d 100 mg capsule active Not Available Not Available Not Available levothyro xine 112 mcg tablet Take 1 tablet every day by oral route. 07/16 completed Not Available Not Available Not Available amoxicill in 875 mg-potass ium clavulana te 125 mg tablet Take 1 tablet every 12 hours by oral route with meals. 01/30 completed Not Available Not Available Not Available oxycodone 5 mg tablet 05/26 completed Not Available Not Available Not Available enoxapari n 80 mg/0.8 mL subcutane ous syringe 05/26 completed Not Available Not Available Not Available enoxapari n 100 mg/mL subcutane ous syringe INJ 90 MG SC Q 12 H 05/26 completed Not Available Not Available Not Available enoxapari n 40 mg/0.4 mL subcutane ous syringe active Not Available Not Available Not Available azithromy myrna 500 mg tablet 05/25 completed Not Available Not Available Not Available ganirelix 250 mcg/0.5 mL subcutane ous syringe 05/26 completed Not Available Not Available Not Available rosuvasta tin 5 mg tablet TAKE 1 TABLET BY MOUTH 3 TIMES EVERY WEEK. TAKE AT BEDTIME. 01/30 completed Not Available Not Available Not Available bupropion HCl XL 300 mg 24 hr tablet, extended release TK 1 T PO QAM. 06/06 completed Not Available Not Available Not Available bupropion HCl XL 150 mg 24 hr tablet, extended release active Not Available Not Available Not Available Menopur 75 unit subcutane ous solution INJ 75 TO 300 UNI SC UTD BY DOCTOR 07/10 completed Not Available Not Available Not Available Femara 05/31 completed Not Available Not Available Not Available hydrochlo rothiazid e 12.5 mg tablet TK 1 T PO D PRN 11/15 completed Not Available Not Available Not Available Vyvanse 30 mg capsule TK ONE C PO QAM 11/15 completed Not Available Not Available Not Available Vyvanse 50 mg capsule TK ONE C PO QAM 06/06 completed Not Available Not Available Not Available Vyvanse 40 mg capsule TK ONE C PO QAM 11/15 completed Not Available Not Available Not Available GaviLyte- G 236 gram-22.7 4 gram-6.74 gram-5.86 gram oral solution active Not Available Not Available Not Available Linzess 290 mcg capsule prn 05/26 completed Not Available Not Available Not Available Diclegis 10 mg-10 mg tablet,de layed release TK 2 TS PO QHS PRN NV 05/31 completed Not Available Not Available Not Available Virtussin AC 10 mg-100 mg/5 mL oral liquid Take 10 mL every 4-6 hours by oral route as needed. 01/30 completed Not Available Not Available Not Available Fluvirin 2015- (PF) 45 mcg (15 mcg x 3)/0.5 mL intramusc ular syringe ADM 0.5ML IM UTD 08/29 completed Not Available Not Available Not Available Afluria Quad (PF) 60 mcg (15 mcg x 4)/0.5 mL IM syringe ADM 0.5ML IM UTD 07/10 completed Not Available Not Available Not Available BinaxNOW COVID-19 Ag Self Test kit TEST DIRECTED TODAY 02/07 completed Not Available Not Available Not Available Vitals Date Recorded Body height Body mass index (BMI) Body weight Body temperature Heart rate Oxygen saturation Oxygen saturation in Arterial blood by Pulse oximetry Systolic And Diastolic Provider Name and Address Organization Details Last Updated DateTime 3 167.64 cm 23.4 kg/m2 26142.8 9 g 97.8 [degF] 83 /min 99 % 99 % 118/70 mm[Hg] Liliam Davison RN [place] [facility] 3 10:29:29 Date Recorded Body mass index (BMI) Body height Oxygen saturation Oxygen saturation in Arterial blood by Pulse oximetry Heart rate Respiratory rate Body temperature Body weight Systolic And Diastolic Provider Name and Address Organization Details Last Updated DateTime 2 21 kg/m2 167.64 cm 99 % 99 % 64 /min 16 /min 97.3 [degF] 02806.0 1 g 118/78 mm[Hg] Not Available [facility] 3 04:44:25 Date Recorded Body height Oxygen saturation Oxygen saturation in Arterial blood by Pulse oximetry Heart rate Respiratory rate Body temperature Systolic And Diastolic Provider Name and Address Organization Details Last Updated DateTime 2 167.64 cm 98 % 98 % 67 /min 16 /min 97.5 [degF] 120/70 mm[Hg] Not Available [facility] 3 04:44:25 Date Recorded Body height Body mass index (BMI) Body weight Body temperature Heart rate Oxygen saturation Oxygen saturation in Arterial blood by Pulse oximetry Systolic And Diastolic Provider Name and Address Organization Details Last Updated DateTime 3 167.64 cm 23.4 kg/m2 81913.8 9 g 96.7 [degF] 70 /min 97 % 97 % 116/70 mm[Hg] Liliam Davison RN [place] - [facility] 3 14:24:21 Date Recorded Body height Oxygen saturation Oxygen saturation in Arterial blood by Pulse oximetry Heart rate Respiratory rate Body temperature Provider Name and Address Organization Details Last Updated DateTime 2 167.64 cm 99 % 99 % 61 /min 16 /min 97.7 [degF] Not Available [facility] 3 04:44:27 Social History Question Answer Notes LastModified by [employer] ion Details LastModified Time Tobacco Smoking Status Never Smoker Not Available [facility] 07/17/2022 04:20:51 What Is Your Level Of Caffeine Consumption? Moderate [id number] Information not available 07/17/2022 How Much Tobacco Do You Chew? None [id number] Information not available 07/17/2022 In The 14 Days Before Symptom Onset, Have You Had Close Contact With A Laboratory-confirm ed COVID-19 While That Case Was Ill? No [id number] Information not available 07/17/2022 In The 14 Days Before Symptom Onset, Have You Had Close Contact With A Person Who Is Under Investigation For COVID-19 While That Person Was Ill? No [id number] Information not available 07/17/2022 What Type Of Diet Are You Following? REGULAR [id number].[id number] Information not available 07/17/2022 Which Illicit Or Recreational Drugs Have You Used? None [id number] Information not available 07/17/2022 Have There Been Any Changes To Your Family Or Social Situation? No [id number].[id number] Information not available 07/17/2022 Do You Use Insect Repellent Routinely? No MIGRATION.[id number] 3344 Information not available 07/17/2022 What Is Your Relationship Status? [id number].[id number] Information not available 07/17/2022 Do You Use Your Seat Belt Or Car Seat Routinely? Yes [id number] Information not available 07/17/2022 Do You Have Smoke And Carbon Monoxide Detectors In Your Home? Yes MIGRATION.[id number] 6602 Information not available 07/17/2022 How Much Tobacco Do You Smoke? No MIGRATION.431763 4211 Information not available 07/17/2022 Do You Use Sunscreen Routinely? Yes MIGRATION.[id number] 0461 Information not available 07/17/2022 Have You Recently Traveled Abroad? No MIGRATION.[id number] Information not available 07/17/2022 Do You Have Any Dietary Restrictions? No MIGRATION.[id number] 0826 Information not available 07/17/2022 Sex: Female Functional Status Question Answer Note LastModified by Organizat ion Details LastModified Time Do you use any illicit or recreational drugs? No MIGRATION.[id number] Information not available 07/17/2022 Do you or have you ever used any other forms of tobacco or nicotine? No MIGRATION.[id number] 4926 Information not available 07/17/2022 What is your level of alcohol consumption? Occasional [id number].[id number] Information not available 07/17/2022 Do you or have you ever used smokeless tobacco? 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 Never used electronic cigarettes MIGRATION.[id number] 3968 Information not available 07/17/2022 What is your exercise level? Heavy MIGRATION.[id number] 4431 Information not available 07/17/2022 Mental Status None recorded. Family History Relationship Description Onset Age of this Age Resolved Age Notes LastModified by Organization Details LastModified Time Mother Disorder of thyroid gland [id number] Not available 07/17/2022 04:41:36 Mother Diabetes mellitus [id number] Not available 07/17/2022 04:41:36 Father Hypertensive disorder [id number] Not available 07/17/2022 04:41:36 Father Hyperlipidem ia [id number] Not available 07/17/2022 04:41:36 Paternal Grandfather Malignant melanoma [id number] Not available 07/17/2022 04:41:36 Medical History Condition Response BLOOD CLOTS Y BOWEL PROBLEMS Y SLEEP DISORDER Y ANXIETY DISORDER Y Gynecological History Statement/Question Response Abnormal Pap N Date of Last Mammogram 05/19/2010 Date of Last Colonoscopy 05/19/2013 Most Recent Bone Density 05/19/2010 Date of LMP 01/11/2021 Sexually Active? Y Menses Monthly N Date of Last Pap 12/16/2019 Date of Last Pap Smear 12/16/2019 Current Control Method IUD Obstetrics History GPAL:G 2 P 0 2 0 4 Type Value Multiple Births 1 Premature 2 Living 4 Total 2 Immunizations Vaccine Type Date Status Note Provider Nam e and Address Organization Details Recorded Time Influenza, split virus, quadrivalent, PF 02/29/2020 completed Not Available [facility] 04:51:59 Past Encounters Encounter ID Performer Location Encounter Start Date Encounter Closed Date Diagnosis/Indication Diagnosis SNOMED-CT Code Diagnosis ICD10 Code Diagnosis Note [id number] FRED Garcia [facility] [place] [address] [address], [address] [place] [address] 08/29/2020 00:00:00 09/15/2020 15:15:12 [id number] [facility] [place] ic_[place] _ATHENA_M IGRATION_ DEFAULT_1 _1 , 01/30/2021 00:00:00 01/30/2021 11:12:24 [id number] Milton Mcdonald MD [facility] [place] [address] [facility] [address] [place] [address] 09/18/2021 00:00:00 10/16/2021 23:34:56 [id number] FRED Garcia [facility] [place] [address] [address], [address] [place] [address] 02/08/2022 00:00:00 02/10/2022 23:49:04 [id number] FRED Garcia [facility] [place] [address] [facility] [address], [address] [facility] [place] [address] 02/27/2022 00:00:00 03/12/2022 13:45:55 [id number] FRED Garcia [facility] [place] [address] [address], [address] [place], [place] [address] [place] [address] 05/07/2022 00:00:00 05/15/2022 12:04:22 [id number] FRED Garcia [facility] [place] [address] [address], [address] [place], [place] [address] [place] [address] 01/30/2023 10:16:42 01/30/2023 10:55:48 Adult health examination 791743888 Z00.01 annual well visit completed. labs are UTD. Generalize d anxiety disorder 99858011 F41.1 stable on citalopram 40mg daily. Hypothyroidism 27611033 E03.9 TSH in 5.300 range. Rx increase for levothyrox ine 137mcg daily. repeat labs in Feb. Gastroesop hageal reflux disease 134991765 K21.9 stable on pantoprazo le 40mg daily. Hyperlipidemia 99895394 E78.5 diet and exercise managed. Irritable bowel syndrome 38579187 K58.9 stable. Nondiabeti c gastroparesis 28805265 K31.84 stable Restless legs 69888805 G 25.81 no acute changes. Long-term drug therapy 026994429 Z79.899 labs are all up to date. [id number] FRED Garcia [facility] [place] [address] [address], [address] [place], [place] [address] [place] [address] 03/21/2023 14:17:40 03/21/2023 15:21:54 Cough 63493470 R05.9 as above. aggressive coughing. needs evaluation . r/o covid, RVR, influenza Dyspnea 407780988 R06.00 over 2 weeks of dyspnea/so b/coughing : pt is send via personal vehicle, her will be transporti ng her to [facility] risk ER dept. Rule out viral illness, r/o pulmonary embolism. 04563840 Z33.1 noted, high risk. Hx of blood clot in first . anticoagul ated currently low dose. Health Concerns Section Related Observation LastModified by Organization Detai ls LastModified Time None Recorded Concern Status LastModified by Organization Details LastModified Time None Recorded Advance Directives Directive None Recorded Payers Insurance Date Sequence Insurance Name Policy Number Policy Perez Covered Member ID Perez Member ID Guarantor Name 04/18/2023 1 [facility] [id number] Barry Bennett [id number] Meagan Bennett 01/17/2023 1 [facility] [place] Meagan Horowitz [id number] Meagan Bennett Notes Date Note Type Note Provider Name and Address Organization Details Recorded Time 02/09/20 text/htm l Generic HPI TemplateReported bypatient.Notes:she thinks she has a stomach ulcer, she has history of them. today is day 5 of dizziness, nausea, sharp stomach pain/cramps, worse after eating always now. gets worse throughout the day. no fever. headaches. Not Available [email or web address] 02/10/2022 23:49:04 02/28/20 text/htm l Generic HPI TemplateReported bypatient.Notes:Pt is here to f/u on her labs. They are in review to you. She didn't get the UGI bc the pantoprazole medication helped. Not Available [email or web address] 03/12/2022 13:45:55 05/07/20 text/htm l CoughReported bypatient.Quality:loose; non productive;harsh Severity:pain with cough; mild Duration:intermittent; acute (<3 weeks) Onset/Timing:actual date: (1 week) Context:non-smoker Modifying Factors:OTC medication; inhaler (moms inhaler) Associated Symptoms:no fever; no chills; no chest pain; no heartburn; no vomiting; no edema; no agitation; no sputum production; no chest wall tenderness; no throat clearing; no dyspnea at rest or exertion;wheezing;post nasal drip;shortness of breath;nasal discharge; ringing in ears, Not Available [email or web address] 05/15/2022 12:04:22 01/31/20 23 text/htm l Anxiety/DepressionReported bypatient.Severity:denies suicidal ideations; able to maintain relationships; does not interfere with activities of daily living Context:no major life stressors Associated Symptoms:denies homicidal ideations; no significant weight gain; no significant weight loss; no visual/auditory hallucinations; no delusions; no shortness of breathHypothyroidismReported bypatient.Onset/Timing:better Context/Risk:normal thyroid levels; no history of head or neck radiation during childhood; no history of thyroid disease; no history of hypothyroidism; no history of hyperthyroidism; no excess iron exposure Exercisegets exercise Associated Symptoms:no cold intolerance; no heat intolerance; no weight loss; no weight gain; no double vision; no dry eyes; no hoarseness; no difficulty swallowing; no neck masses; no deepening of the voice; no fast heart rate; no increased blood pressure; no palpitations; no chest pain; no chest tightess or pressure; no constipation; no diarrhea; no vomiting; no decreased appetite; no loose stools; no irregular menstrual periods; no excessive sweating; no joint pain; no numbness; no tingling of the hands or feet; no dry skin; no tremor; no nervousness; no anxiety; no depression; no fatigue; no sleep difficulties; no skin changes; no hair changes wellnesscurrently taking amoxil from dentist FRED Garcia [address], [place], [address], [employer] 02/15/2023 10:43:49 03/21/20 23 text/htm l CoughReported bypatient.Quality:loose; no hemoptysis;harsh;tight;producti ve yellow sputum Severity:moderate Duration:constant; symptoms lasting over 2 weeks Timing:gradual Context:non-smoker;worse at night Associated Symptoms:no orthopnea; no wheezing ; no post nasal drip; no edema; no chest pain; no paroxysmal nocturnal dyspnea; no daytime somnolence; no heartburn; no snoring; no fever; no chills; no vomiting; no agitation; no sleep attacks;dyspnea with exertion;wheezing;chest pain pt is 12 weeks , her children are in the room and DO NOT know. FRED Garcia [address], [place], [address], [employer] 04/17/2023 22:51:30 OBGyn Episode No OBEpisode recorded.
== END 2024-11-28 12:58 | disposition home or self-care (01) ==
PROVIDERS: PCP Physician Assistant; Visit Provider Student in an Organized Health Care Education/Training Program
DX: E23.7 Disorder of pituitary gland, unspecified (principal); E28.39 Other primary ovarian failure; N94.89 Other specified conditions associated with female genital organs and menstrual cycle
CPT/HCPCS: 70553; A9577